=== PATIENT | female | born 1980 | race Caucasian/White ===

== ENCOUNTER → 2019-07-05 | Outpatient (CLI) | payer BC ==
[~2019-07-05] MED LIST: BCP TD; HCTZ12.5TAB PO; LOTENSIN20 MG PO; SINGULAIR 110 MG/TAB PO; WELLBUTRIN XL150 MG PO; ZOLOFT 50MG50 MG PO
== END ==
LOC: MC.RAD 13:48
DX: Z12.31 Encounter for screening mammogram for malignant neoplasm of breast (principal)

== ENCOUNTER 2019-07-16 05:55 | Day surgery (SDC) | payer BC ==
[~2019-07-16] VITALS: Ht 160 cm; Wt 90.6 kg
[~2019-07-16 05:55] MED LIST changes: -HCTZ12.5TAB PO; -LOTENSIN20 MG PO; -SINGULAIR 110 MG/TAB PO; -WELLBUTRIN XL150 MG PO; -ZOLOFT 50MG50 MG PO
[2019-07-16 06:14] VITALS: BP 139/97; PULSE 78; TEMP 98.4
[2019-07-16] MEDS ORDERED: LOTENSIN20 MG PO (06:20)
[2019-07-16] MEDS ORDERED: HCTZ12.5TAB PO (06:20)
[2019-07-16] MEDS ORDERED: WELLBUTRIN XL150 MG PO (06:21)
[2019-07-16] MEDS ORDERED: SINGULAIR 110 MG/TAB PO (06:21)
[2019-07-16] MEDS ORDERED: ZOLOFT 50MG50 MG PO (06:22)
[2019-07-16 07:35] VITALS: BP 105/80; PULSE 69; TEMP 97.8
--- NOTE | 2019-07-16 07:35 | NUR ---
PATIENT BACK TO [facility] VIA CART BY Edwina ALCANTARA RN. AMBULATES WITH 1 PERSON ASSIST TO CHAIR. REPORT RECEIVED . DENIES NAUSEA OR DIZZINESS. MADE COMFORTABLE IN CHAIR, SITS HIGH FOWLERS, WARM BLANKETS GIVEN, VITAL SIGNS WNL, DENIES PAIN. OFFER FOR REFRESHMENT. SPRITE AND MUFFIN GIVEN. NO OTHER NEEDS AT THIS TIME.
[2019-07-16 07:45] VITALS: BP 123/85; PULSE 71
--- NOTE | 2019-07-16 07:45 | NUR ---
PT CONTINUES TO DO WELL POST PROCEDURE, RESTING IN CHAIR, EATING AND DRINKING WITHOUT NAUSEA. DENIES PAIN. NO COMPLAINTS.
[2019-07-16 08:00] VITALS: BP 124/105; PULSE 76
--- NOTE | 2019-07-16 08:00 | NUR ---
PATIENT CONTINUES TO DO WELL POST PROCEDURE. NO NAUSEA. DR AT BEDSIDE SPEAKS WITH PATIENT AND SPOUSE.
[2019-07-16 08:15] VITALS: BP 122/76; PULSE 70
--- NOTE | 2019-07-16 08:15 | NUR ---
PATIENT DOING WELL. NO NAUSEA OR PAIN. READY TO GO HOME. DISCHARGE INSTRUCTIONS GIVEN AND EXPLAINED. PATIENT SIGNS AND VERBALIZES UNDERSTANDING. DENIES QUESTIONS. IV REMOVED FROM RIGHT WRIST.
== END 2019-07-16 08:30 | disposition home or self-care (01) ==
LOC: SDCO 05:55
DX: R19.7 Diarrhea, unspecified (principal); I10 Essential (primary) hypertension; Z80.0 Family history of malignant neoplasm of digestive organs; Z88.1 Allergy status to other antibiotic agents; Z90.710 Acquired absence of both cervix and uterus
CPT/HCPCS: J2250; J2405; J3010; J7030